=== PATIENT | male | born 1945 | race African-American/Black ===

== ENCOUNTER 2017-09-13 16:18 | Inpatient (IN) | payer OTHER ==
[~2017-09-13] VITALS: Ht 175.3 cm; Wt 68.0 kg
[2017-09-13 16:36] VITALS: BP_SYST 155
[2017-09-13] MEDS ORDERED: NACL 0.9% 1,000 ML IV ONE ×2 (17:00→18:00)
[2017-09-13] MEDS ORDERED: ONDANSETRON HCL 4 MG/2 ML VIAL IVP ONE (17:00)
[2017-09-13] MEDS ORDERED: PRO40 PO (17:13)
[2017-09-13] MEDS ORDERED: NOR10 PO (17:13)
[2017-09-13] MEDS ORDERED: METO50TA7 PO (17:13)
[2017-09-13] MEDS ORDERED: ASPI-1155 PO (17:14)
[2017-09-13] MEDS ORDERED: GABA-529 PO (17:14)
[2017-09-13] MEDS ORDERED: TRAV2.5D OP (17:16)
[2017-09-13 17:17] LABS: HEMATOCRIT 45.1 % (36-54); HEMOGLOBIN 15.1 g/dL (14.0-18.0); MEAN CORPUSCULAR HEMOGLOBIN 31 pg (27-31); MEAN CORPUSCULAR HGB CONC 34 % (32-36); MEAN CORPUSCULAR VOLUME 92 fL (79.0-98.0); PLATELET COUNT (AUTO) 166 K/uL (130-430); RED BLOOD CELL COUNT(AUTO) 4.89 MIL/uL (4.2-6.2); WHITE BLOOD COUNT (AUTO) 10.4 K/uL (4.8-10.8)
[2017-09-13 17:24] LABS: ANION GAP 13 (5-15); CHLORIDE 96 mmol/L (98-107); CREATININE 1.01 mg/dL (0.55-1.30); GLUCOSE 179 mg/dL (70-99); POTASSIUM 3.6 mmol/L (3.5-5.1); SODIUM SERUM 134 mmol/L (136-145); UREA NITROGEN, BLOOD 13 mg/dL (8-21)
[2017-09-13 17:29] LABS: ALANINE AMINOTRANSFERASE 38 U/L (12-78); ALBUMIN 3.7 g/dL (3.4-4.8); ASPARTATE AMINOTRANSFERASE 62 U/L (10-37); TOTAL BILIRUBIN 1.3 mg/dL (0.0-1.0)
[2017-09-13] MEDS ORDERED: METOCLOPRAMIDE HCL 10 MG/2 ML VIAL IVP ONE (17:30)
[2017-09-13 17:42] LABS: LIPASE 17068 U/L (73-393)
[2017-09-13 17:51] LABS: BAND % (MANUAL) 12 % (0-6); BASOPHILS % (MANUAL) 0 % (0-2); EOSINOPHILS % (MANUAL) 0 % (0-7); LYMPHOCYTES % (MANUAL) 3 % (20-46); MONOCYTES % (MANUAL) 2 % (0-11)
[2017-09-13 17:56] LABS: BILIRUBIN,URINE 2+ (NEGATIVE); CLARITY/URINE SL HAZY (CLEAR); COLOR,URINE AMBER (YELLOW); GLUCOSE,URINE NEGATIVE (NEGATIVE); KETONES,URINE 3+ (NEGATIVE); LEUKOCYTE ESTERASE ,URINE TRACE (NEGATIVE); NITRITE, URINE NEGATIVE (NEGATIVE); PH,URINE 7.5 (5.0-8.0); PROTEIN URINE 2+ (NEGATIVE)
[2017-09-13 18:01] LABS: BLOOD, URINE TRACE (NEGATIVE)
[2017-09-13 18:08] LABS: BACTERIA,URINE FEW /HPF (None Seen); RBC,URINE 0-3 /HPF (0-3)
[2017-09-13 18:09] LABS: FINE GRANULAR CASTS,URINE 0-10 /LPF (None Seen); HYALINE CASTS, URINE 0-10 /LPF (None Seen); MUCUS,URINE 3+ /LPF (None Seen)
[2017-09-13 18:11] LABS: BARBITURATE, URINE NEGATIVE (NEG <=200); BENZODIAZEPINE, URINE NEGATIVE (NEG <=150); CANNABINOID, URINE NEGATIVE (NEG <=50); COCAINE, URINE NEGATIVE (NEG <=150); METHAMPHETAMINES SCREEN,URINE NEGATIVE (NEG <=500); OPIATE, URINE NEGATIVE (NEG <=100); PHENCYCLIDINE SCREEN,URINE NEGATIVE (NEG <=25); UR TRICYCLIC ANTIDEPRESSANTS NEGATIVE (NEG <=300); URINE AMPHETAMINE NEGATIVE (NEG <=500); URINE METHADONE NEGATIVE (NEG <=200); URINE OXYCODONE SCREEN NEGATIVE (NEG <=100); URINE PROPOXYPHENE SCREEN NEGATIVE (NEG <=300)
[2017-09-13] MEDS ORDERED: FOLIC ACID 1 MG, THIAMINE HCL 100 MG, MAGNESIUM SULFATE 1 GM, MVI 10 ML in NACL 0.9% 1,... IV ONE (18:15)
[2017-09-13] MEDS ORDERED: ONDANSETRON HCL 4 MG/2 ML VIAL IVP PRN (18:15)
[2017-09-13] MEDS ORDERED: MORPHINE 2 MG/ML INJ. SYRINGE IVP PRN (18:15)
[2017-09-13] MEDS ORDERED: MORPHINE 4 MG/ML INJ. SYRINGE IVP ONE (18:15)
[2017-09-13 18:22] LABS: PHOSPHORUS 2.7 mg/dL (2.7-4.5)
[2017-09-13 18:29] LABS: ALCOHOL, BLOOD < 3 mg/dL (<10)
[2017-09-13] MEDS ORDERED: LORazepam 2 MG/ML VIAL (FOR ER USE) IVP ONE (18:30)
[2017-09-13] MEDS ORDERED: DILTIAZEM HCL 25 MG/5 ML VIAL ONE (19:55)
[2017-09-13] MEDS ORDERED: LORazepam 2 MG/ML VIAL (FOR ER USE) ONE (19:55)
[2017-09-13] MEDS ORDERED: LORazepam 2 MG/ML VIAL IVP SCH (20:00)
[2017-09-13] MEDS ORDERED: DILTIAZEM HCL 25 MG/5 ML VIAL IVP SCH (20:00)
[2017-09-13 20:47] VITALS: BP_SYST 165
[2017-09-13 21:00] VITALS: BP_SYST 156
[2017-09-13] MEDS ORDERED: THIAMINE HCL 100 MG/ML VIAL ONE (21:14)
[2017-09-13] MEDS ORDERED: MVI 10 ML VIAL IV ONE (21:14)
[2017-09-13 22:00] VITALS: BP_SYST 154
[2017-09-13] MEDS ORDERED: FAMOTIDINE PF 20 MG/2 ML VIAL IVP SCH (22:00)
[2017-09-13] MEDS ORDERED: cloNIDine HCL 0.1 MG TABLET PO PRN (22:15)
[2017-09-13] MEDS: FOLIC ACID 1 MG, THIAMINE HCL 100 MG, MAGNESIUM SULFATE 1 GM, MVI 10 ML in NACL 0.9% 1,... IV SCH (22:24)
[2017-09-13] MEDS: LORazepam 2 MG/ML VIAL IVP PRN (22:33)
[2017-09-13] MEDS ORDERED: METOPROLOL TARTRATE 25 MG TABLET ONE (22:34)
[2017-09-13] MEDS ORDERED: LEVOFLOXACIN 250 MG/D5W 50 ML IV ONE (22:46)
[2017-09-13] MEDS: LEVOFLOXACIN 250 MG/D5W 50 ML IV SCH (22:52)
[2017-09-13] MEDS: TAMSULOSIN HCL 0.4 MG CAP PO SCH (22:52)
[2017-09-13] MEDS ORDERED: TAMSULOSIN HCL 0.4 MG CAP ONE (22:55)
[2017-09-13 23:00] VITALS: BP_SYST 162
[2017-09-13] MEDS ORDERED: METOPROLOL TARTRATE 25 MG TABLET PO SCH (23:00)
[2017-09-13] MEDS ORDERED: NACL 0.9% 1,000 ML IV SCH (23:30)
[2017-09-14] VITALS (17 sets, daily range): BP systolic 132–159
[2017-09-14] MEDS: MORPHINE 4 MG/ML INJ. SYRINGE IVP PRN ×2 (04:38→10:21)
[2017-09-14 06:16] LABS: ALANINE AMINOTRANSFERASE 28 U/L (12-78); ANION GAP 6 (5-15); ASPARTATE AMINOTRANSFERASE 34 U/L (10-37); CALCIUM 7.4 mg/dL (8.4-11.0); CHLORIDE 103 mmol/L (98-107); CHOLESTEROL 153 mg/dL (<200); CREATININE 0.88 mg/dL (0.55-1.30); GLUCOSE 136 mg/dL (70-99); HDL CHOLESTEROL 62 mg/dL (>45); LDL CHOLESTEROL 83 mg/dL (<100); POTASSIUM 3.4 mmol/L (3.5-5.1); SODIUM SERUM 135 mmol/L (136-145); TOTAL BILIRUBIN 1.2 mg/dL (0.0-1.0); TRIGLYCERIDES 27 mg/dL (30-150); UREA NITROGEN, BLOOD 11 mg/dL (8-21)
[2017-09-14 06:49] LABS: BASOPHILS # (AUTO) 0.1 K/uL (0.0-0.2); BASOPHILS % (AUTO) 1.1 % (0.0-2.0); EOSINOPHILS # (AUTO) 0.1 K/uL (0.0-0.4); EOSINOPHILS % (AUTO) 0.6 % (0.0-4.0); HEMATOCRIT 40.3 % (36-54); HEMOGLOBIN 13.6 g/dL (14.0-18.0); LYMPHOCYTES # (AUTO) 0.4 K/uL (1.0-5.5); LYMPHOCYTES % (AUTO) 3.6 % (20.5-51.5); MEAN CORPUSCULAR HEMOGLOBIN 31 pg (27-31); MEAN CORPUSCULAR HGB CONC 34 % (32-36); MEAN CORPUSCULAR VOLUME 92 fL (79.0-98.0); MONOCYTES # (AUTO) 0.2 K/uL (0.0-1.0); MONOCYTES % (AUTO) 2.1 % (1.7-9.3); NEUTROPHILS % (AUTO) 92.6 % (40.0-70.0); PLATELET COUNT (AUTO) 136 K/uL (130-430); RED BLOOD CELL COUNT(AUTO) 4.37 MIL/uL (4.2-6.2); RED CELL DISTRIBUTION WIDTH 13.3 % (9.0-15.0); WHITE BLOOD COUNT (AUTO) 11.8 K/uL (4.8-10.8)
[2017-09-14 07:00] LABS: LIPASE 6744 U/L (73-393)
[2017-09-14] MEDS: LR 1,000 ML IV SCH ×2 (07:42→17:18)
[2017-09-14] MEDS ORDERED: LATANOPROST 2.5 ML DROPS (XALATAN) OP SCH (09:00)
[2017-09-14] MEDS: FAMOTIDINE PF 20 MG/2 ML VIAL IVP SCH ×2 (09:19→20:06)
[2017-09-14] MEDS: FOLIC ACID 1 MG TABLET PO SCH (10:21)
[2017-09-14] MEDS: METOPROLOL SUCCINATE 50 MG TAB.SR.24H (TOPROL XL) PO SCH (10:22)
[2017-09-14] MEDS: PANTOPRAZOLE SODIUM 40 MG TAB PO SCH (10:22)
[2017-09-14] MEDS: ASPIRIN 81 MG TAB.CHEW PO SCH (10:22)
[2017-09-14] MEDS: TAMSULOSIN HCL 0.4 MG CAP PO SCH ×2 (10:22→20:06)
[2017-09-14] MEDS: THIAMINE HCL 100 MG TABLET PO SCH (10:23)
[2017-09-14] MEDS: GABAPENTIN 100 MG CAPSULE PO SCH ×3 (10:23→20:06)
[2017-09-14] MEDS ORDERED: POTASSIUM CHLORIDE 40 MEQ, LIDOCAINE JECT 2% PF 100 MG 50 MG in NS 250 ML IV ONE (13:15)
[2017-09-14] MEDS ORDERED: MAGNESIUM SULFATE 50 ML IV ONE (13:15)
[2017-09-14] MEDS ORDERED: NAPH,MB-DB/K PH,MBDB 250 MG TAB PO ONE (13:15)
[2017-09-14] MEDS ORDERED: POTASSIUM CHLORIDE 20 MEQ TAB.PRT.SR PO ONE (13:15)
[2017-09-14] MEDS ORDERED: GENTAMICIN 120 mg/100 mL NS 100 ML IV ONE (13:30)
[2017-09-14] MEDS: LATANOPROST 2.5 ML DROPS (XALATAN) OP SCH (20:06)
[2017-09-14] MEDS: LEVOFLOXACIN 250 MG/D5W 50 ML IV SCH (21:30)
[2017-09-14] MEDS: FOLIC ACID 1 MG, THIAMINE HCL 100 MG, MAGNESIUM SULFATE 1 GM, MVI 10 ML in NACL 0.9% 1,... IV SCH (21:30)
[2017-09-14] MEDS: LORazepam 2 MG/ML VIAL IVP PRN (23:41)
[2017-09-15 00:16] VITALS: BP_SYST 165
[2017-09-15 02:00] VITALS: BP_SYST 151
[2017-09-15] MEDS: LR 1,000 ML IV SCH ×3 (03:46→17:26)
[2017-09-15 06:09] LABS: BASOPHILS % (AUTO) 0.2 % (0.0-2.0); EOSINOPHILS % (AUTO) 0.1 % (0.0-4.0); HEMATOCRIT 38.7 % (36-54); HEMOGLOBIN 12.9 g/dL (14.0-18.0); LYMPHOCYTES # (AUTO) 0.6 K/uL (1.0-5.5); LYMPHOCYTES % (AUTO) 5.2 % (20.5-51.5); MEAN CORPUSCULAR HEMOGLOBIN 31 pg (27-31); MEAN CORPUSCULAR HGB CONC 33 % (32-36); MEAN CORPUSCULAR VOLUME 93 fL (79.0-98.0); MONOCYTES # (AUTO) 0.3 K/uL (0.0-1.0); MONOCYTES % (AUTO) 2.6 % (1.7-9.3); NEUTROPHILS # (AUTO) 9.8 K/uL (1.8-7.7); NEUTROPHILS % (AUTO) 91.9 % (40.0-70.0); RED BLOOD CELL COUNT(AUTO) 4.18 MIL/uL (4.2-6.2); RED CELL DISTRIBUTION WIDTH 13.2 % (9.0-15.0)
[2017-09-15 08:05] VITALS: BP_SYST 129
[2017-09-15 08:06] LABS: WHITE BLOOD COUNT (AUTO) 10.7 K/uL (4.8-10.8)
[2017-09-15 08:45] LABS: PLATELET COUNT (AUTO) 92 K/uL (130-430)
[2017-09-15 08:46] LABS: ALANINE AMINOTRANSFERASE 20 U/L (12-78); ALBUMIN 2.4 g/dL (3.4-4.8); ANION GAP 7 (5-15); ASPARTATE AMINOTRANSFERASE 23 U/L (10-37); BILIRUBIN,DIRECT 0.5 mg/dL (0.0-0.3); CALCIUM 7.4 mg/dL (8.4-11.0); CHLORIDE 97 mmol/L (98-107); CREATININE 0.85 mg/dL (0.55-1.30); GLUCOSE 117 mg/dL (70-99); LIPASE 537 U/L (73-393); POTASSIUM 3.6 mmol/L (3.5-5.1); SODIUM SERUM 130 mmol/L (136-145); TOTAL BILIRUBIN 1.2 mg/dL (0.0-1.0); UREA NITROGEN, BLOOD 11 mg/dL (8-21)
[2017-09-15] MEDS: FAMOTIDINE PF 20 MG/2 ML VIAL IVP SCH ×2 (09:06→21:29)
[2017-09-15] MEDS: ASPIRIN 81 MG TAB.CHEW PO SCH (09:06)
[2017-09-15] MEDS: FOLIC ACID 1 MG TABLET PO SCH (09:06)
[2017-09-15] MEDS: THIAMINE HCL 100 MG TABLET PO SCH (09:07)
[2017-09-15] MEDS: PANTOPRAZOLE SODIUM 40 MG TAB PO SCH (09:07)
[2017-09-15] MEDS: TAMSULOSIN HCL 0.4 MG CAP PO SCH ×2 (09:07→21:29)
[2017-09-15] MEDS: GABAPENTIN 100 MG CAPSULE PO SCH ×3 (09:07→21:29)
[2017-09-15] MEDS: METOPROLOL SUCCINATE 50 MG TAB.SR.24H (TOPROL XL) PO SCH ×2 (09:08→21:30)
[2017-09-15 11:39] VITALS: BP_SYST 128
[2017-09-15] MEDS: METOCLOPRAMIDE HCL 10 MG/2 ML VIAL IVP SCH ×2 (13:08→22:25)
[2017-09-15 15:34] VITALS: BP_SYST 151
[2017-09-15] MEDS ORDERED: BISACODYL 5 MG TABLET.DR (DULCOLAX) PO PRN (17:00)
[2017-09-15] MEDS ORDERED: BISACODYL 5 MG TABLET.DR (DULCOLAX) PO ONE (17:00)
[2017-09-15] MEDS ORDERED: cloNIDine HCL 0.1 MG TABLET PO ONE (17:00)
[2017-09-15] MEDS ORDERED: DOCUSATE SODIUM 250 MG CAPSULE PO ONE (18:00)
[2017-09-15 19:50] VITALS: BP_SYST 143
[2017-09-15] MEDS: cloNIDine HCL 0.1 MG TABLET PO SCH (21:31)
[2017-09-15] MEDS: LATANOPROST 2.5 ML DROPS (XALATAN) OP SCH (21:31)
[2017-09-15] MEDS: LEVOFLOXACIN 250 MG/D5W 50 ML IV SCH (22:25)
[2017-09-16] VITALS (7 sets, daily range): BP systolic 127–154
[2017-09-16] MEDS: LR 1,000 ML IV SCH ×3 (01:08→22:17)
[2017-09-16] MEDS: METOCLOPRAMIDE HCL 10 MG/2 ML VIAL IVP SCH ×3 (05:25→22:17)
[2017-09-16 06:12] LABS: HEMATOCRIT 36.3 % (36-54); HEMOGLOBIN 12.3 g/dL (14.0-18.0); MEAN CORPUSCULAR HEMOGLOBIN 32 pg (27-31); MEAN CORPUSCULAR HGB CONC 34 % (32-36); MEAN CORPUSCULAR VOLUME 93 fL (79.0-98.0); PLATELET COUNT (AUTO) 86 K/uL (130-430); RED CELL DISTRIBUTION WIDTH 12.9 % (9.0-15.0)
[2017-09-16 07:01] LABS: WHITE BLOOD COUNT (AUTO) 10.6 K/uL (4.8-10.8)
[2017-09-16 07:30] LABS: ALANINE AMINOTRANSFERASE 18 U/L (12-78); ALBUMIN 2.4 g/dL (3.4-4.8); ANION GAP 9 (5-15); ASPARTATE AMINOTRANSFERASE 24 U/L (10-37); CHLORIDE 96 mmol/L (98-107); CREATININE 0.85 mg/dL (0.55-1.30); GLUCOSE 114 mg/dL (70-99); LIPASE 211 U/L (73-393); POTASSIUM 3.1 mmol/L (3.5-5.1); SODIUM SERUM 131 mmol/L (136-145); TOTAL BILIRUBIN 1.6 mg/dL (0.0-1.0); UREA NITROGEN, BLOOD 12 mg/dL (8-21)
[2017-09-16 08:04] LABS: ATYPICAL LYMPHOCYTES % 0 % (0-0); BAND % (MANUAL) 3 % (0-6); BASOPHILS % (MANUAL) 0 % (0-2); EOSINOPHILS % (MANUAL) 0 % (0-7); LYMPHOCYTES % (MANUAL) 8 % (20-46); MONOCYTES % (MANUAL) 9 % (0-11)
[2017-09-16 08:18] LABS: % FREE PSA 20.5 % (.); FREE PSA 0.86 ng/mL
[2017-09-16] MEDS: DOCUSATE SODIUM 250 MG CAPSULE PO SCH ×2 (09:00→21:00)
[2017-09-16] MEDS: METOPROLOL SUCCINATE 50 MG TAB.SR.24H (TOPROL XL) PO SCH ×2 (09:00→21:40)
[2017-09-16] MEDS ORDERED: IOHEXOL 100 ML IV ONE (11:02)
[2017-09-16] MEDS ORDERED: DIATR MEGLU/DIATRIZ SOD 30 ML SOLUTION PO ONE (11:02)
[2017-09-16] MEDS: THIAMINE HCL 100 MG TABLET PO SCH (12:09)
[2017-09-16] MEDS: PANTOPRAZOLE SODIUM 40 MG TAB PO SCH (12:10)
[2017-09-16] MEDS: ASPIRIN 81 MG TAB.CHEW PO SCH (12:10)
[2017-09-16] MEDS: FOLIC ACID 1 MG TABLET PO SCH (12:10)
[2017-09-16] MEDS: GABAPENTIN 100 MG CAPSULE PO SCH ×3 (12:10→21:40)
[2017-09-16] MEDS: cloNIDine HCL 0.1 MG TABLET PO SCH ×3 (12:11→21:39)
[2017-09-16] MEDS: TAMSULOSIN HCL 0.4 MG CAP PO SCH ×2 (12:11→21:40)
[2017-09-16] MEDS: FAMOTIDINE PF 20 MG/2 ML VIAL IVP SCH ×2 (12:12→21:36)
[2017-09-16 12:47] LABS: PROSTATE SPECIFIC AG TOTAL 4.2 ng/mL (0.0-4.0)
[2017-09-16] MEDS ORDERED: POTASSIUM CHLORIDE 40 MEQ, LIDOCAINE JECT 2% PF 100 MG 50 MG in NS 250 ML IV ONE (14:45)
[2017-09-16] MEDS ORDERED: BENZOCAINE/MENTHOL 1 EACH LOZENGE MM PRN (14:45)
[2017-09-16] MEDS ORDERED: IPRATROPIUM/ALBUTEROL SULFATE 3 ML AMPUL.NEB INH PRN (16:30)
[2017-09-16] MEDS: IPRATROPIUM/ALBUTEROL SULFATE 3 ML AMPUL.NEB INH SCH ×2 (16:37→19:38)
[2017-09-16] MEDS ORDERED: GENTAMICIN 120 mg/100 mL NS 100 ML IV ONE (16:45)
[2017-09-16] MEDS ORDERED: THIAMINE HCL 100 MG in NS 50 ML IV ONE (17:00)
[2017-09-16] MEDS ORDERED: FUROSEMIDE 40 MG/4 ML VIAL IVP ONE (17:45)
[2017-09-16] MEDS ORDERED: methylPREDNISolone SOD SUCC/PF 62.5 MG/ML VIAL IVP ONE (18:00)
[2017-09-16] MEDS ORDERED: VANCOMYCIN HCL 750 MG/NS 250 ML IV SCH (18:00)
[2017-09-16] MEDS: LATANOPROST 2.5 ML DROPS (XALATAN) OP SCH (21:36)
[2017-09-16] MEDS: metroNIDAZOLE 250 MG TABLET PO SCH (21:40)
[2017-09-16] MEDS: LEVOFLOXACIN 250 MG/D5W 50 ML IV SCH (22:17)
[2017-09-17] MEDS: IPRATROPIUM/ALBUTEROL SULFATE 3 ML AMPUL.NEB INH SCH ×4 (01:00→19:55)
[2017-09-17 01:18] VITALS: BP_SYST 130
[2017-09-17] MEDS ORDERED: methylPREDNISolone SOD SUCC/PF 62.5 MG/ML VIAL IVP SCH (06:00)
[2017-09-17 06:24] LABS: ANION GAP 7 (5-15); CALCIUM 8.2 mg/dL (8.4-11.0); CHLORIDE 99 mmol/L (98-107); CREATININE 0.96 mg/dL (0.55-1.30); GLUCOSE 168 mg/dL (70-99); POTASSIUM 3.4 mmol/L (3.5-5.1); SODIUM SERUM 135 mmol/L (136-145); UREA NITROGEN, BLOOD 11 mg/dL (8-21)
[2017-09-17] MEDS: metroNIDAZOLE 250 MG TABLET PO SCH ×3 (06:29→21:29)
[2017-09-17] MEDS: METOCLOPRAMIDE HCL 10 MG/2 ML VIAL IVP SCH ×3 (06:29→21:27)
[2017-09-17 06:31] LABS: ALANINE AMINOTRANSFERASE 18 U/L (12-78); ALBUMIN 2.4 g/dL (3.4-4.8); ASPARTATE AMINOTRANSFERASE 22 U/L (10-37); LIPASE 200 U/L (73-393); TOTAL BILIRUBIN 1.2 mg/dL (0.0-1.0)
[2017-09-17 07:32] LABS: WHITE BLOOD COUNT (AUTO) 7.6 K/uL (4.8-10.8)
[2017-09-17 07:33] LABS: HEMOGLOBIN 11.5 g/dL (14.0-18.0); MEAN CORPUSCULAR HEMOGLOBIN 32 pg (27-31); MEAN CORPUSCULAR HGB CONC 34 % (32-36); MEAN CORPUSCULAR VOLUME 93 fL (79.0-98.0); PLATELET COUNT (AUTO) 109 K/uL (130-430); RED BLOOD CELL COUNT(AUTO) 3.65 MIL/uL (4.2-6.2)
[2017-09-17 07:34] LABS: BASOPHILS # (AUTO) 0.1 K/uL (0.0-0.2); BASOPHILS % (AUTO) 0.8 % (0.0-2.0); EOSINOPHILS % (AUTO) 0.1 % (0.0-4.0); LYMPHOCYTES # (AUTO) 0.2 K/uL (1.0-5.5); LYMPHOCYTES % (AUTO) 2.5 % (20.5-51.5); MONOCYTES # (AUTO) 0.4 K/uL (0.0-1.0); MONOCYTES % (AUTO) 5.7 % (1.7-9.3); NEUTROPHILS # (AUTO) 6.9 K/uL (1.8-7.7)
[2017-09-17 07:35] LABS: NEUTROPHILS % (AUTO) 90.9 % (40.0-70.0)
[2017-09-17 08:00] VITALS: BP_SYST 147
[2017-09-17] MEDS: cloNIDine HCL 0.1 MG TABLET PO SCH ×3 (09:00→21:29)
[2017-09-17] MEDS ORDERED: POTASSIUM CHLORIDE 20 MEQ/PKT PACKET PO ONE (09:45)
[2017-09-17] MEDS: THIAMINE HCL 100 MG TABLET PO SCH (10:44)
[2017-09-17] MEDS: ASPIRIN 81 MG TAB.CHEW PO SCH (10:44)
[2017-09-17] MEDS: FOLIC ACID 1 MG TABLET PO SCH (10:44)
[2017-09-17] MEDS: PANTOPRAZOLE SODIUM 40 MG TAB PO SCH (10:44)
[2017-09-17] MEDS: TAMSULOSIN HCL 0.4 MG CAP PO SCH ×2 (10:44→21:28)
[2017-09-17] MEDS: DOCUSATE SODIUM 250 MG CAPSULE PO SCH ×2 (10:44→21:00)
[2017-09-17] MEDS: GABAPENTIN 100 MG CAPSULE PO SCH ×3 (10:44→21:29)
[2017-09-17] MEDS: METOPROLOL SUCCINATE 50 MG TAB.SR.24H (TOPROL XL) PO SCH ×2 (10:46→21:28)
[2017-09-17] MEDS: FAMOTIDINE PF 20 MG/2 ML VIAL IVP SCH ×2 (10:47→21:52)
[2017-09-17 12:11] VITALS: BP_SYST 140
[2017-09-17] MEDS: methylPREDNISolone SOD SUCC 40 MG/ML VIAL IVP SCH ×2 (13:32→21:29)
[2017-09-17] MEDS ORDERED: IOHEXOL 350 mgI/mL, 150 ML INFUS..BTL IV ONE (14:59)
[2017-09-17 16:19] VITALS: BP_SYST 144
[2017-09-17] MEDS ORDERED: POTASSIUM CHLORIDE 40 MEQ, LIDOCAINE JECT 2% PF 100 MG 50 MG in NS 250 ML IV ONE (17:30)
[2017-09-17] MEDS ORDERED: MAG-AL HYDROX/SIMETH 30 ML UDC PO PRN (18:00)
[2017-09-17] MEDS ORDERED: CHOLECALCIFEROL (VITAMIN D3) 2,000 UNIT TABLET PO ONE (18:15)
[2017-09-17 21:00] VITALS: BP_SYST 139
[2017-09-17] MEDS: LEVOFLOXACIN 250 MG/D5W 50 ML IV SCH (21:29)
[2017-09-17] MEDS: LATANOPROST 2.5 ML DROPS (XALATAN) OP SCH (21:52)
[2017-09-18 01:29] VITALS: BP_SYST 147
[2017-09-18] MEDS: IPRATROPIUM/ALBUTEROL SULFATE 3 ML AMPUL.NEB INH SCH (01:30)
[2017-09-18] MEDS: metroNIDAZOLE 250 MG TABLET PO SCH ×2 (04:58→13:08)
[2017-09-18] MEDS: METOCLOPRAMIDE HCL 10 MG/2 ML VIAL IVP SCH ×2 (04:59→13:08)
[2017-09-18] MEDS: methylPREDNISolone SOD SUCC 40 MG/ML VIAL IVP SCH (04:59)
[2017-09-18 06:40] LABS: BASOPHILS % (AUTO) 0.2 % (0.0-2.0); HEMOGLOBIN 11.9 g/dL (14.0-18.0); LYMPHOCYTES # (AUTO) 0.3 K/uL (1.0-5.5); LYMPHOCYTES % (AUTO) 3.6 % (20.5-51.5); MEAN CORPUSCULAR HEMOGLOBIN 32 pg (27-31); MEAN CORPUSCULAR HGB CONC 34 % (32-36); MEAN CORPUSCULAR VOLUME 93 fL (79.0-98.0); MONOCYTES # (AUTO) 0.8 K/uL (0.0-1.0); MONOCYTES % (AUTO) 9.9 % (1.7-9.3); NEUTROPHILS # (AUTO) 6.6 K/uL (1.8-7.7); NEUTROPHILS % (AUTO) 86.3 % (40.0-70.0); PLATELET COUNT (AUTO) 154 K/uL (130-430); RED BLOOD CELL COUNT(AUTO) 3.76 MIL/uL (4.2-6.2); RED CELL DISTRIBUTION WIDTH 12.9 % (9.0-15.0); WHITE BLOOD COUNT (AUTO) 7.7 K/uL (4.8-10.8)
[2017-09-18 06:54] LABS: ALANINE AMINOTRANSFERASE 30 U/L (12-78); ALBUMIN 2.4 g/dL (3.4-4.8); ANION GAP 5 (5-15); ASPARTATE AMINOTRANSFERASE 32 U/L (10-37); CALCIUM 8.9 mg/dL (8.4-11.0); CHLORIDE 100 mmol/L (98-107); CREATININE 0.82 mg/dL (0.55-1.30); GLUCOSE 150 mg/dL (70-99); PHOSPHORUS 2.3 mg/dL (2.7-4.5); POTASSIUM 3.5 mmol/L (3.5-5.1); SODIUM SERUM 133 mmol/L (136-145); TOTAL BILIRUBIN 0.9 mg/dL (0.0-1.0); UREA NITROGEN, BLOOD 14 mg/dL (8-21)
[2017-09-18] MEDS: TAMSULOSIN HCL 0.4 MG CAP PO SCH (08:49)
[2017-09-18] MEDS: cloNIDine HCL 0.1 MG TABLET PO SCH (08:50)
[2017-09-18] MEDS: METOPROLOL SUCCINATE 50 MG TAB.SR.24H (TOPROL XL) PO SCH (08:51)
[2017-09-18] MEDS: ASPIRIN 81 MG TAB.CHEW PO SCH (08:52)
[2017-09-18] MEDS: GABAPENTIN 100 MG CAPSULE PO SCH (08:52)
[2017-09-18] MEDS: THIAMINE HCL 100 MG TABLET PO SCH (08:52)
[2017-09-18] MEDS: FOLIC ACID 1 MG TABLET PO SCH (08:52)
[2017-09-18] MEDS: DOCUSATE SODIUM 250 MG CAPSULE PO SCH ×2 (08:52→09:00)
[2017-09-18] MEDS: FAMOTIDINE PF 20 MG/2 ML VIAL IVP SCH (08:54)
[2017-09-18 08:55] VITALS: BP_SYST 155
[2017-09-18] MEDS ORDERED: CHOLECALCIFEROL (VITAMIN D3) 2,000 UNIT TABLET PO SCH (09:00)
[2017-09-18 10:35] VITALS: BP_SYST 137
[2017-09-18] MEDS ORDERED: PREDNISONE 20 MG TABLET PO SCH (11:45)
[2017-09-18] MEDS ORDERED: CARVEDILOL 6.25 MG TABLET (COREG) PO ONE (11:45)
[2017-09-18] MEDS ORDERED: CARVEDILOL 6.25 MG TABLET (COREG) PO SCH (21:00)
== END 2017-09-18 13:30 | DRG 438 ==
LOC: SED 16:18 → STU 18:06 → SIC 20:20 → STU 09-14 14:36
PROVIDERS: ADMIT Internal Medicine; ATTEND Internal Medicine
PROC: 0D9670Z Drainage of Stomach with Drainage Device, Via Natural or Artificial Opening (ICD-10-PCS; principal; 2017-09-16)
DX: K85.20 Alcohol induced acute pancreatitis without necrosis or infection (principal); E43 Unspecified severe protein-calorie malnutrition; J18.9 Pneumonia, unspecified organism; R65.10 Systemic inflammatory response syndrome (SIRS) of non-infectious origin without acute organ dysfunction; N39.0 Urinary tract infection, site not specified; F10.231 Alcohol dependence with withdrawal delirium; E87.1 Hypo-osmolality and hyponatremia; K56.7 Ileus, unspecified; N32.89 Other specified disorders of bladder; N40.0 Benign prostatic hyperplasia without lower urinary tract symptoms; K59.00 Constipation, unspecified; J92.0 Pleural plaque with presence of asbestos; K57.90 Diverticulosis of intestine, part unspecified, without perforation or abscess without bleeding; R09.02 Hypoxemia; E86.0 Dehydration; E87.6 Hypokalemia; G62.1 Alcoholic polyneuropathy; K70.10 Alcoholic hepatitis without ascites; I10 Essential (primary) hypertension; K21.9 Gastro-esophageal reflux disease without esophagitis; Z88.5 Allergy status to narcotic agent; Z88.6 Allergy status to analgesic agent; Z68.22 Body mass index [BMI] 22.0-22.9, adult; Z88.0 Allergy status to penicillin; Z79.899 Other long term (current) drug therapy; Z79.82 Long term (current) use of aspirin
CPT/HCPCS: 36415; 36600; 71045; 71275; 74018; 76700-TC; 80048; 80053; 80061; 80076; 80307; 81000-TC; 82803-TC; 83605; 83690-TC; 83735-TC; 84100-TC; 84484; 85007; 85025; 85027; 87040-TC; 87081; 87086; 93005; 93306; 93970; 94640; 94760; 96361; 96374; 96375; 96376; 97110-GP; 97116-GP; 97530-GP; 97535-GP; 99285; G0103; G0482; J1030; J1580; J1940; J1956; J2060; J2270; J2405; J2765; J2930; J3370; J3411; J3475; J3480; J3490; J7030; J7050; J7120; J7620; Q9964; Q9967